=== PATIENT | female | born 1940 | race Caucasian/White ===

== ENCOUNTER → 2021-06-28 | Outpatient (CLI) | payer MEDICARE, OTHER | LOC: HEART 5 09:42 | DX: I42.0 Dilated cardiomyopathy (principal); I50.22 Chronic systolic (congestive) heart failure | CPT/HCPCS: 93306 ==

== ENCOUNTER → 2021-07-13 | Outpatient (CLI) | payer MEDICARE, OTHER ==
[2021-07-13 12:56] LABS: HEMOGLOBIN 13.1 gm/dl (12.3-15.3); RED BLOOD COUNT 4.11 M/UL (4.00-5.10); WHITE BLOOD COUNT 4.4 K/UL (4.5-11.0)
[2021-07-14 07:11] LABS: CALCIUM, SERUM 9.7 mg/dL (8.7-10.3); CREATININE, SERUM 1.17 mg/dL (0.57-1.00); POTASSIUM, SERUM 4.6 mmol/L (3.5-5.2)
== END ==
LOC: LAB 11:46
PROVIDERS: Internal Medicine Cardiovascular Disease
DX: I50.22 Chronic systolic (congestive) heart failure (principal); I42.0 Dilated cardiomyopathy; Z45.02 Encounter for adjustment and management of automatic implantable cardiac defibrillator
CPT/HCPCS: 36415; 71046; 80048; 85025

== ENCOUNTER → 2021-07-15 | Outpatient (CLI) | payer MEDICARE, OTHER ==
[~2021-07-15] MED LIST: CEPHALEXIN500 M1 PO; CLINDAMYCIN HC300 MG PO; COREG 25MG TAB25 MG PO; ELIQUIS5 M1 PO; FUROSEMIDE80 MG PO; HYDROCODON-ACE1 EAC4 PO; KLOR-CON20 MEQ PO; SIMVASTATIN10 MG PO; SPIRONOLACTONE25 MG PO; TRAMADOL HCL50 MG PO; VASOTEC10 MG PO; VITAMIN D3125 MCG PO; VITAMIN E400 UNI1 PO
== END ==
LOC: CATH 07:06
DX: Z45.02 Encounter for adjustment and management of automatic implantable cardiac defibrillator (principal); I11.0 Hypertensive heart disease with heart failure; I50.22 Chronic systolic (congestive) heart failure; I42.0 Dilated cardiomyopathy; I25.10 Atherosclerotic heart disease of native coronary artery without angina pectoris; I48.0 Paroxysmal atrial fibrillation; E78.5 Hyperlipidemia, unspecified; E66.01 Morbid (severe) obesity due to excess calories; M19.049 Primary osteoarthritis, unspecified hand; I25.2 Old myocardial infarction; Z95.810 Presence of automatic (implantable) cardiac defibrillator; Z88.1 Allergy status to other antibiotic agents; Z88.8 Allergy status to other drugs, medicaments and biological substances; Z79.01 Long term (current) use of anticoagulants; Z90.710 Acquired absence of both cervix and uterus; Z20.822 Contact with and (suspected) exposure to COVID-19
CPT/HCPCS: 93641; 99152; 99153; C1882; J1200; J2250; J3010; J3370; J7040; J7050; U0002

== ENCOUNTER → 2022-02-20 | Outpatient (CLI) | payer MEDICARE, OTHER | LOC: EXRD 13:48 | DX: Z13.820 Encounter for screening for osteoporosis (principal); M79.643 Pain in unspecified hand; M85.862 Other specified disorders of bone density and structure, left lower leg; Z78.0 Asymptomatic menopausal state | CPT/HCPCS: 73130; 77080 ==

== ENCOUNTER → 2022-03-24 | Outpatient (CLI) | payer MEDICARE, OTHER ==
[2022-03-24 07:09] LABS: HEMOGLOBIN 13.2 gm/dl (12.3-15.3); RED BLOOD COUNT 4.13 M/UL (4.00-5.10); WHITE BLOOD COUNT 5.5 K/UL (4.5-11.0)
== END ==
LOC: LAB 06:50
PROVIDERS: Family Medicine
DX: R73.9 Hyperglycemia, unspecified (principal); E55.9 Vitamin D deficiency, unspecified; E78.5 Hyperlipidemia, unspecified; I10 Essential (primary) hypertension
CPT/HCPCS: 36415; 80053; 80061; 83036; 83735; 84443; 85027